=== PATIENT | female | born 1980 | race African-American/Black ===

== ENCOUNTER 2017-09-12 10:25 | Inpatient (IN) | payer OTHER ==
[2017-09-12] VITALS (9 sets, daily range): BP systolic 104–148; BP diastolic 66–105
[~2017-09-12] VITALS: Ht 165.1 cm; Wt 71.3 kg
[~2017-09-12 10:25] MED LIST: FIORICET,ESG1 TABLET PO; LEVEMIR100 UNIT/2 SC; MOTRIN800 MG PO; NORCO 10/3251 TABLET PO; NOVOLOG PE100 UNITS/ SC; PREDNISONE20 MG PO; ROXICODONE5 MG PO; VALIUM5 MG PO
[2017-09-12 11:19] LABS: BASOPHIL COUNT 0.1 K/uL (0-0.1); CARBON DIOXIDE (BICARBONATE) 5.1 MEQ/L (20-31); EOSINOPHIL (%) 0.2 % (0-5); HEMATOCRIT 45.7 % (36.0-46.0); IMMATURE GRANULOCYTE (%) 1.8 % (0.0-0.7); IMMATURE GRANULOCYTE COUNT 0.3 K/uL; LYMPHOCYTE COUNT 1.5 K/uL (1.0-2.8); MCH 29.5 PG (29.0-34.0); MCHC 33.9 G/DL (30.0-36.0); MEAN PLAT.VOLUME 11.3 uM^3 (9.5-12.4); MONOCYTE (%) 6.8 % (3-12); MONOCYTE COUNT 1.2 K/uL (0-0.8); NEUTROPHIL (%) 81.8 % (45-76); PLATELET COUNT 301 K/uL (156-360); RBC DIS.WIDTH-SD 43.4 % (39-53); RED BLOOD COUNT 5.25 M/uL (3.80-5.20); WHITE BLOOD COUNT 17.1 K/uL (4.1-10.2)
[2017-09-12 11:27] LABS: CHLORIDE 104 mEq/L (99-109); POTASSIUM 3.5 mEq/L (3.7-5.4); SODIUM 131 mEq/L (136-147)
[2017-09-12 11:29] LABS: GLUCOSE 500 mg/dL (70-99)
[2017-09-12 11:30] LABS: ANION GAP 23 MEQ/L (2-14)
[2017-09-12 11:31] LABS: TOTAL BILIRUBIN 0.2 mg/dL (0.0-1.0)
[2017-09-12 11:32] LABS: ALKALINE PHOSPHATASE 125 IU/L (3-129); GFR ESTIMATE (CALCULATED) > 59 mL/min/
[2017-09-12 11:34] LABS: UREA NITROGEN (BUN) 9 mg/dL (9-23)
[2017-09-12 11:41] LABS: QUANTITATIVE HCG < 4.0 MIU/ML
[2017-09-12 12:15] LABS: ADD MIUA? YES; BILIRUBIN NEGATIVE; BLOOD LARGE; COLOR YELLOW ((YELLOW)); GLUCOSE (STRIP) >=500; KETONES 80; LEUKOCYTES MODERATE; NITRITE NEGATIVE; PROTEIN (STRIP) 100; SPECIFIC GRAVITY 1.023 (1.000-1.030); UROBILINOGEN 0.2 MG/DL (0.2-1.0)
[2017-09-12 12:29] LABS: BACTERIA RARE /HPF; EPITHELIAL CELLS RARE /HPF; MUCUS TRACE /LPF; RED BLOOD CELLS TNTC /HPF (0-5); WHITE BLOOD CELLS TNTC /HPF (0-5)
[2017-09-12 13:02] LABS: POINT-OF-CARE METER ID UU13113702
[2017-09-12 14:06] LABS: POINT-OF-CARE METER ID UU13113702
[2017-09-12 15:08] LABS: POINT-OF-CARE METER ID UU14162636
[2017-09-12] MEDS ORDERED: NOVOLOG 10100 UNITS/ SC (15:23)
[2017-09-12] MEDS ORDERED: BASAGLAR K100 UNIT/1 SC (15:23)
[2017-09-12] MEDS ORDERED: BACTRIM,SEPT1 TABLET PO (15:24)
[2017-09-12] MEDS ORDERED: TRAMADOL HCL50 MG PO (15:25)
[2017-09-12 16:10] LABS: ANION GAP 25 MEQ/L (2-14); CHLORIDE 108 MEQ/L (99-109); POTASSIUM 3.2 MEQ/L (3.7-5.4); SAMPLE HEMOLYSIS CHECK 0; SAMPLE ICTERIC CHECK 0; SAMPLE LIPEMIA CHECK 0; SODIUM 136 MEQ/L (136-147)
[2017-09-12 16:14] LABS: GFR ESTIMATE (CALCULATED) > 59 mL/min/; GLUCOSE 363 mg/dL (70-99); UREA NITROGEN (BUN) 10 mg/dL (9-23)
[2017-09-12 16:17] LABS: POINT-OF-CARE METER ID UU14162636
[2017-09-12 16:31] LABS: Estimated Average Glucose 453 mg/dL (70-123)
[2017-09-12 16:33] LABS: METH RESISTANT S AUREUS PCR NEGATIVE (NEGATIVE)
[2017-09-12 16:51] LABS: HEMOGLOBIN A1c (GLYCOHEMOGLOB) 17.4 % HGB (Below 5.7)
[2017-09-12 16:54] LABS: PROBE CHECK PASS; SPECIMEN PROCESSING CONTROL PASS
[2017-09-12 17:18] LABS: POINT-OF-CARE METER ID UU14174217
[2017-09-12 18:08] LABS: POINT-OF-CARE METER ID UU14162636
[2017-09-12 19:16] LABS: POINT-OF-CARE METER ID UU14162636
[2017-09-12 20:00] LABS: POINT-OF-CARE METER ID UU14162636
[2017-09-12 20:15] LABS: CHLORIDE 110 MEQ/L (99-109); POTASSIUM 2.6 MEQ/L (3.7-5.4); SODIUM 136 MEQ/L (136-147)
[2017-09-12 20:54] LABS: POINT-OF-CARE METER ID UU14162636
[2017-09-12 21:10] LABS: ANION GAP 20 MEQ/L (2-14); GFR ESTIMATE (CALCULATED) > 59 mL/min/; SAMPLE HEMOLYSIS CHECK 0; SAMPLE ICTERIC CHECK 0; SAMPLE LIPEMIA CHECK 0; UREA NITROGEN (BUN) 9 mg/dL (9-23)
[2017-09-12 21:11] LABS: GLUCOSE 124 mg/dL (70-99)
[2017-09-12 21:56] LABS: POINT-OF-CARE METER ID UU14208751
[2017-09-12 22:43] LABS: POINT-OF-CARE METER ID UU14208751
[2017-09-12 23:37] LABS: POINT-OF-CARE METER ID UU14208751
[2017-09-13] VITALS (21 sets, daily range): BP systolic 96–130; BP diastolic 60–88
[2017-09-13 00:34] LABS: POINT-OF-CARE METER ID UU14208751
[2017-09-13 01:18] LABS: CHLORIDE 110 mEq/L (99-109); SODIUM 134 mEq/L (136-147)
[2017-09-13 01:21] LABS: ANION GAP 15 MEQ/L (2-14)
[2017-09-13 01:23] LABS: GFR ESTIMATE (CALCULATED) > 59 mL/min/
[2017-09-13 01:24] LABS: UREA NITROGEN (BUN) 7 mg/dL (9-23)
[2017-09-13 01:25] LABS: GLUCOSE 203 mg/dL (70-99); POTASSIUM 2.4 mEq/L (3.7-5.4)
[2017-09-13 01:30] LABS: POINT-OF-CARE METER ID UU14162636
[2017-09-13 02:30] LABS: POINT-OF-CARE METER ID UU14162636
[2017-09-13 03:19] LABS: SAMPLE HEMOLYSIS CHECK 0; SAMPLE ICTERIC CHECK 0; SAMPLE LIPEMIA CHECK 0
[2017-09-13 03:28] LABS: POINT-OF-CARE METER ID UU14162636
[2017-09-13 04:19] LABS: POINT-OF-CARE METER ID UU14162636
[2017-09-13 05:11] LABS: POINT-OF-CARE METER ID UU14162636
[2017-09-13 06:14] LABS: CHLORIDE 104 MEQ/L (99-109); GFR ESTIMATE (CALCULATED) > 59 mL/min/; GLUCOSE 153 mg/dL (70-99); POTASSIUM 2.5 MEQ/L (3.7-5.4); SAMPLE HEMOLYSIS CHECK 0; SAMPLE ICTERIC CHECK 0; SAMPLE LIPEMIA CHECK 0; SODIUM 134 MEQ/L (136-147); UREA NITROGEN (BUN) 7 mg/dL (9-23)
[2017-09-13 06:44] LABS: ANION GAP 18 MEQ/L (2-14)
[2017-09-13 07:11] LABS: POINT-OF-CARE METER ID UU14162636
[2017-09-13 09:24] LABS: POINT-OF-CARE METER ID UU14162636
[2017-09-13 09:54] LABS: ANION GAP 13 MEQ/L (2-14); CHLORIDE 104 MEQ/L (99-109); GFR ESTIMATE (CALCULATED) > 59 mL/min/; GLUCOSE 156 mg/dL (70-99); SAMPLE HEMOLYSIS CHECK 0; SAMPLE ICTERIC CHECK 0; SAMPLE LIPEMIA CHECK 0; SODIUM 135 MEQ/L (136-147); UREA NITROGEN (BUN) 6 mg/dL (9-23)
[2017-09-13 09:55] LABS: POTASSIUM 2.2 MEQ/L (3.7-5.4)
[2017-09-13 11:24] LABS: POINT-OF-CARE METER ID UU14208751
[2017-09-13 12:37] LABS: EOSINOPHIL (%) 0.3 % (0-5); HEMATOCRIT 33.1 % (36.0-46.0); IMMATURE GRANULOCYTE (%) 0.6 % (0.0-0.7); IMMATURE GRANULOCYTE COUNT 0.1 K/uL; INSTRUMENT ABS NEUTROPHIL CT 8.8 K/uL; LYMPHOCYTE COUNT 1.7 K/uL (1.0-2.8); MCHC 36.9 G/DL (30.0-36.0); MEAN PLAT.VOLUME 11.2 uM^3 (9.5-12.4); MONOCYTE (%) 9.7 % (3-12); MONOCYTE COUNT 1.1 K/uL (0-0.8); NEUTROPHIL (%) 74.6 % (45-76); NEUTROPHIL COUNT 8.8 K/uL (1.8-6.4); PLATELET COUNT 221 K/uL (156-360); RBC DIS.WIDTH-CV 13.7 % (11.8-14.6); RBC DIS.WIDTH-SD 39.7 % (39-53); WHITE BLOOD COUNT 11.8 K/uL (4.1-10.2)
[2017-09-13 12:41] LABS: MCV 81.3 FL (83-99); RED BLOOD COUNT 4.07 M/uL (3.80-5.20)
[2017-09-13 13:01] LABS: ANION GAP 9 MEQ/L (2-14); CHLORIDE 105 MEQ/L (99-109); POTASSIUM 2.5 MEQ/L (3.7-5.4); SAMPLE HEMOLYSIS CHECK 0; SAMPLE ICTERIC CHECK 0; SAMPLE LIPEMIA CHECK 0; SODIUM 136 MEQ/L (136-147)
[2017-09-13 13:07] LABS: GFR ESTIMATE (CALCULATED) > 59 mL/min/; GLUCOSE 170 mg/dL (70-99); UREA NITROGEN (BUN) 5 mg/dL (9-23)
[2017-09-13 13:37] LABS: POINT-OF-CARE METER ID UU14162636
[2017-09-13] MEDS ORDERED: LAMICTAL25 MG PO (14:10)
[2017-09-13] MEDS ORDERED: ALPRAZOLAM1 MG PO (14:10)
[2017-09-13] MEDS ORDERED: SEROQUEL100 MG PO (14:11)
[2017-09-13] MEDS ORDERED: DEPAKOTE500 MG PO (14:11)
[2017-09-13] MEDS ORDERED: SAPHRIS5 MG SL (14:11)
[2017-09-13] MEDS ORDERED: GABAPENTIN300 MG PO (14:12)
[2017-09-13] MEDS ORDERED: DEPAKOTE250 MG PO (14:12)
[2017-09-13 15:51] LABS: POINT-OF-CARE METER ID UU14208751
[2017-09-13 18:07] LABS: POINT-OF-CARE METER ID UU14314082
[2017-09-13 21:10] LABS: POINT-OF-CARE METER ID UU14314082
[2017-09-13 22:17] LABS: POINT-OF-CARE METER ID UU14314082
[2017-09-14] VITALS (13 sets, daily range): BP systolic 94–112; BP diastolic 54–72
[2017-09-14 05:36] LABS: EOSINOPHIL (%) 0.9 % (0-5); EOSINOPHIL COUNT 0.1 K/uL (0-0.3); HEMATOCRIT 34.3 % (36.0-46.0); IMMATURE GRANULOCYTE (%) 0.9 % (0.0-0.7); IMMATURE GRANULOCYTE COUNT 0.1 K/uL; INSTRUMENT ABS NEUTROPHIL CT 3.8 K/uL; LYMPHOCYTE COUNT 2.9 K/uL (1.0-2.8); MCHC 35.6 G/DL (30.0-36.0); MCV 81.5 FL (83-99); MEAN PLAT.VOLUME 11.7 uM^3 (9.5-12.4); MONOCYTE (%) 9.6 % (3-12); MONOCYTE COUNT 0.7 K/uL (0-0.8); NEUTROPHIL (%) 49.9 % (45-76); NEUTROPHIL COUNT 3.8 K/uL (1.8-6.4); PLATELET COUNT 214 K/uL (156-360); RBC DIS.WIDTH-CV 13.9 % (11.8-14.6); RBC DIS.WIDTH-SD 40.4 % (39-53); RED BLOOD COUNT 4.21 M/uL (3.80-5.20); WHITE BLOOD COUNT 7.6 K/uL (4.1-10.2)
[2017-09-14 06:20] LABS: ANION GAP 9 MEQ/L (2-14); CHLORIDE 104 MEQ/L (99-109); GFR ESTIMATE (CALCULATED) > 59 mL/min/; GLUCOSE 61 mg/dL (70-99); MAGNESIUM 2.1 mg/dl (1.3-2.7); POTASSIUM 2.3 MEQ/L (3.7-5.4); SAMPLE HEMOLYSIS CHECK 0; SAMPLE ICTERIC CHECK 0; SAMPLE LIPEMIA CHECK 0; SODIUM 142 MEQ/L (136-147); UREA NITROGEN (BUN) 5 mg/dL (9-23)
[2017-09-14 09:07] LABS: POINT-OF-CARE METER ID UU14314082
[2017-09-14 09:38] LABS: POINT-OF-CARE METER ID UU14314083
[2017-09-14 13:46] LABS: POINT-OF-CARE METER ID UU14314082
[2017-09-14 17:03] LABS: POINT-OF-CARE METER ID UU14314082
[2017-09-14 18:33] LABS: ANION GAP 9 MEQ/L (2-14); CHLORIDE 102 MEQ/L (99-109); GFR ESTIMATE (CALCULATED) > 59 mL/min/; MAGNESIUM 1.9 mg/dl (1.3-2.7); SAMPLE HEMOLYSIS CHECK 0; SAMPLE ICTERIC CHECK 0; SAMPLE LIPEMIA CHECK 0; SODIUM 141 MEQ/L (136-147); UREA NITROGEN (BUN) 4 mg/dL (9-23)
[2017-09-14 18:43] LABS: GLUCOSE 170 mg/dL (70-99)
[2017-09-14 22:44] LABS: POINT-OF-CARE METER ID UU14314083
[2017-09-15 04:13] VITALS: BP 109/72
[2017-09-15 05:54] LABS: EOSINOPHIL (%) 1.4 % (0-5); EOSINOPHIL COUNT 0.1 K/uL (0-0.3); HEMATOCRIT 33.3 % (36.0-46.0); IMMATURE GRANULOCYTE (%) 0.8 % (0.0-0.7); INSTRUMENT ABS NEUTROPHIL CT 1.5 K/uL; LYMPHOCYTE COUNT 2.7 K/uL (1.0-2.8); MCH 29.6 PG (29.0-34.0); MCHC 35.4 G/DL (30.0-36.0); MCV 83.5 FL (83-99); MEAN PLAT.VOLUME 12.1 uM^3 (9.5-12.4); MONOCYTE (%) 12.6 % (3-12); MONOCYTE COUNT 0.6 K/uL (0-0.8); NEUTROPHIL (%) 30.9 % (45-76); NEUTROPHIL COUNT 1.5 K/uL (1.8-6.4); PLATELET COUNT 200 K/uL (156-360); RBC DIS.WIDTH-CV 14.3 % (11.8-14.6); RBC DIS.WIDTH-SD 42.4 % (39-53); RED BLOOD COUNT 3.99 M/uL (3.80-5.20)
[2017-09-15 06:31] LABS: ANION GAP 9 MEQ/L (2-14); CHLORIDE 105 MEQ/L (99-109); GFR ESTIMATE (CALCULATED) > 59 mL/min/; GLUCOSE 145 mg/dL (70-99); POTASSIUM 2.9 MEQ/L (3.7-5.4); SAMPLE HEMOLYSIS CHECK 0; SAMPLE ICTERIC CHECK 0; SAMPLE LIPEMIA CHECK 0; SODIUM 146 MEQ/L (136-147); UREA NITROGEN (BUN) 4 mg/dL (9-23)
[2017-09-15 06:33] LABS: POINT-OF-CARE METER ID UU14188577
[2017-09-15 07:24] VITALS: BP 99/58
[2017-09-15 11:39] VITALS: BP 101/60
[2017-09-15 11:45] LABS: POINT-OF-CARE METER ID UU14117124
[2017-09-15 15:36] VITALS: BP 100/55
[2017-09-15 16:17] LABS: POINT-OF-CARE METER ID UU14188577
[2017-09-15 19:35] VITALS: BP 101/62
[2017-09-15 22:03] LABS: POINT-OF-CARE METER ID UU14208753
[2017-09-15 23:09] VITALS: BP 109/72
[2017-09-15 23:24] LABS: POINT-OF-CARE METER ID UU14188577
[2017-09-16 05:02] VITALS: BP 102/69
[2017-09-16 06:11] LABS: EOSINOPHIL (%) 1.2 % (0-5); EOSINOPHIL COUNT 0.1 K/uL (0-0.3); IMMATURE GRANULOCYTE (%) 0.7 % (0.0-0.7); INSTRUMENT ABS NEUTROPHIL CT 1.6 K/uL; LYMPHOCYTE COUNT 3.4 K/uL (1.0-2.8); MCH 29.2 PG (29.0-34.0); MCHC 33.5 G/DL (30.0-36.0); MEAN PLAT.VOLUME 12.4 uM^3 (9.5-12.4); MONOCYTE (%) 9.6 % (3-12); MONOCYTE COUNT 0.6 K/uL (0-0.8); NEUTROPHIL (%) 27.6 % (45-76); NEUTROPHIL COUNT 1.6 K/uL (1.8-6.4); NRBC (%) 0.4 /100 WBC (0-0); PLATELET COUNT 209 K/uL (156-360); RBC DIS.WIDTH-CV 14.6 % (11.8-14.6); RBC DIS.WIDTH-SD 45.5 % (39-53); RED BLOOD COUNT 3.91 M/uL (3.80-5.20); WHITE BLOOD COUNT 5.7 K/uL (4.1-10.2)
[2017-09-16 06:41] LABS: POINT-OF-CARE METER ID UU14117124
[2017-09-16 06:44] LABS: ALKALINE PHOSPHATASE 54 IU/L (3-129); ANION GAP 12 MEQ/L (2-14); CHLORIDE 103 MEQ/L (99-109); GFR ESTIMATE (CALCULATED) > 59 mL/min/; GLUCOSE 157 mg/dL (70-99); MAGNESIUM 1.8 mg/dl (1.3-2.7); SAMPLE HEMOLYSIS CHECK 0; SAMPLE ICTERIC CHECK 0; SAMPLE LIPEMIA CHECK 0; SODIUM 146 MEQ/L (136-147); TOTAL BILIRUBIN 0.2 MG/DL (0.0-1.0); UREA NITROGEN (BUN) 7 mg/dL (9-23)
[2017-09-16 07:27] VITALS: BP 104/64
[2017-09-16] MEDS ORDERED: POTASSIUM CHLO20 ME1 PO (09:45)
[2017-09-16 11:40] LABS: POINT-OF-CARE METER ID UU14117124
[2017-09-16 16:29] VITALS: BP 103/71
[2017-09-16 16:40] LABS: POINT-OF-CARE METER ID UU14208753
== END 2017-09-16 18:38 | disposition home or self-care (01) | DRG 638 ==
LOC: EME 10:25 → 4WEST 13:57 → ENRESERV 13:57 → EDOF 13:57 → ENRESERV 13:58 → 4WEST 14:51 → ENRESERV 09-14 21:13 → 4WEST 09-14 21:20 → ENRESERV 09-14 21:49 → 3EAST 09-14 22:51
PROVIDERS: Emergency Medicine; Hospitalist; Specialist
DX: E10.10 Type 1 diabetes mellitus with ketoacidosis without coma (principal); E86.0 Dehydration; E87.6 Hypokalemia; E83.42 Hypomagnesemia; E83.39 Other disorders of phosphorus metabolism; N39.0 Urinary tract infection, site not specified; F17.203 Nicotine dependence unspecified, with withdrawal; Z79.4 Long term (current) use of insulin; Z91.14 Patient's other noncompliance with medication regimen
CPT/HCPCS: 71010; 80048; 80048 91; 80053; 81003; 82010; 82803; 82948; 83036; 83735; 84100; 84132 91; 84702; 85025; 87641; 99281; 99285; J0610; J0696; J1644; J1815; J3475; J3480; J7030; J7040; J7050; J7070; S0028

== ENCOUNTER 2018-01-09 12:40 | Inpatient (IN) | payer OTHER ==
[~2018-01-09] VITALS: Ht 167.6 cm; Wt 68.3 kg
[2018-01-09] VITALS (14 sets, daily range): BP systolic 97–129; BP diastolic 63–105
[~2018-01-09 12:40] MED LIST changes: +ALPRAZOLAM1 MG PO; +BACTRIM,SEPT1 TABLET PO; +BASAGLAR K100 UNIT/1 SC; +DEPAKOTE250 MG PO; +DEPAKOTE500 MG PO; +GABAPENTIN300 MG PO; +LAMICTAL25 MG PO; +NOVOLOG 10100 UNITS/ SC; +POTASSIUM CHLO20 ME1 PO; +SAPHRIS5 MG SL; +SEROQUEL100 MG PO; +TRAMADOL HCL50 MG PO
[2018-01-09 13:44] LABS: BASOPHIL (%) 0.7 % (0-1); BASOPHIL COUNT 0.1 K/uL (0-0.1); EOSINOPHIL (%) 0.4 % (0-5); EOSINOPHIL COUNT 0.1 K/uL (0-0.3); HEMATOCRIT 48.3 % (36.0-46.0); HEMOGLOBIN 16.4 G/DL (11.9-15.5); IMMATURE GRANULOCYTE (%) 0.8 % (0.0-0.7); LYMPHOCYTE (%) 19.6 % (15-42); LYMPHOCYTE COUNT 2.6 K/uL (1.0-2.8); MCH 29.2 PG (29.0-34.0); MCV 85.9 FL (83-99); MONOCYTE (%) 6.4 % (3-12); MONOCYTE COUNT 0.8 K/uL (0-0.8); NEUTROPHIL (%) 72.1 % (45-76); NEUTROPHIL COUNT 9.4 K/uL (1.8-6.4); PLATELET COUNT 267 K/uL (156-360); RBC DIS.WIDTH-CV 12.5 % (11.8-14.6); RBC DIS.WIDTH-SD 38.9 % (39-53); RED BLOOD COUNT 5.62 M/uL (3.80-5.20)
[2018-01-09 13:47] LABS: CARBON DIOXIDE (BICARBONATE) 9.5 MEQ/L (20-31)
[2018-01-09 13:53] LABS: ALBUMIN 4.6 g/dL (3.2-4.8); CHLORIDE 101 mEq/L (99-109); POTASSIUM 5.5 mEq/L (3.7-5.4); SODIUM 132 mEq/L (136-147)
[2018-01-09 13:58] LABS: TOTAL BILIRUBIN 0.2 mg/dL (0.0-1.0)
[2018-01-09 13:59] LABS: ALKALINE PHOSPHATASE 89 IU/L (3-129)
[2018-01-09 14:00] LABS: CREATININE 1.6 mg/dL (0.6-1.3); GFR ESTIMATE (CALCULATED) 47 mL/min/
[2018-01-09 14:01] LABS: AST (GOT) 12 IU/L (2-34); GLUCOSE 634 mg/dL (70-99); UREA NITROGEN (BUN) 11 mg/dL (9-23)
[2018-01-09 14:02] LABS: ALT (GPT) 12 IU/L (3-49)
[2018-01-09 15:33] LABS: APPEARANCE SL.HAZY ((CLEAR)); BILIRUBIN NEGATIVE; BLOOD NEGATIVE; COLOR STRAW ((YELLOW)); GLUCOSE (STRIP) >=500; KETONES 80; LEUKOCYTES MODERATE; NITRITE NEGATIVE; PROTEIN (STRIP) 30; SPECIFIC GRAVITY 1.026 (1.000-1.030); UROBILINOGEN 0.2 MG/DL (0.2-1.0)
[2018-01-09 15:43] LABS: BACTERIA RARE /HPF; EPITHELIAL CELLS RARE /HPF; MUCUS TRACE /LPF; UCUL ADDED? YES; WHITE BLOOD CELLS 30-40 /HPF (0-5)
[2018-01-09 16:41] LABS: QUANTITATIVE HCG < 4.0 MIU/ML
[2018-01-09 21:23] LABS: CHLORIDE 111 MEQ/L (99-109); PHOSPHORUS 1.7 mg/dL (2.5-4.9); SODIUM 135 MEQ/L (136-147); UREA NITROGEN (BUN) 9 mg/dL (9-23)
[2018-01-09 21:27] LABS: CREATININE 0.7 MG/DL (0.6-1.3); GFR ESTIMATE (CALCULATED) > 59 mL/min/; GLUCOSE 172 mg/dL (70-99); POTASSIUM 3.5 MEQ/L (3.7-5.4)
[2018-01-10] VITALS (15 sets, daily range): BP systolic 105–133; BP diastolic 65–97
[2018-01-10 00:59] LABS: CHLORIDE 110 mEq/L (99-109); POTASSIUM 3.5 mEq/L (3.7-5.4)
[2018-01-10 01:00] LABS: SODIUM 136 mEq/L (136-147)
[2018-01-10 01:01] LABS: GLUCOSE 153 mg/dL (70-99)
[2018-01-10 01:05] LABS: CREATININE 0.9 mg/dL (0.6-1.3); GFR ESTIMATE (CALCULATED) > 59 mL/min/; PHOSPHORUS 1.9 mg/dL (2.5-4.9)
[2018-01-10 01:06] LABS: UREA NITROGEN (BUN) 6 mg/dL (9-23)
[2018-01-10 05:40] LABS: CHLORIDE 111 MEQ/L (99-109); CREATININE 0.7 MG/DL (0.6-1.3); GFR ESTIMATE (CALCULATED) > 59 mL/min/; GLUCOSE 119 mg/dL (70-99); PHOSPHORUS 1.8 mg/dL (2.5-4.9); POTASSIUM 3.3 MEQ/L (3.7-5.4); SODIUM 136 MEQ/L (136-147); UREA NITROGEN (BUN) 6 mg/dL (9-23)
[2018-01-10 08:50] LABS: CHLORIDE 107 MEQ/L (99-109); CREATININE 0.7 MG/DL (0.6-1.3); GFR ESTIMATE (CALCULATED) > 59 mL/min/; PHOSPHORUS 1.6 mg/dL (2.5-4.9); POTASSIUM 2.8 MEQ/L (3.7-5.4); SODIUM 133 MEQ/L (136-147); UREA NITROGEN (BUN) 5 mg/dL (9-23)
[2018-01-10 08:57] LABS: GLUCOSE 185 mg/dL (70-99)
[2018-01-10] MEDS ORDERED: LANTUS 3 M100 UNITS1 SC (11:31)
[2018-01-10] MEDS ORDERED: NOVOLOG100 UNIT/1 SC (11:32)
[2018-01-10 11:41] LABS: HEMOGLOBIN A1c (GLYCOHEMOGLOB) 16.6 % (Below 5.7)
[2018-01-10 13:42] LABS: CHLORIDE 108 MEQ/L (99-109); CREATININE 0.6 MG/DL (0.6-1.3); GFR ESTIMATE (CALCULATED) > 59 mL/min/; GLUCOSE 167 mg/dL (70-99); PHOSPHORUS 1.3 mg/dL (2.5-4.9); SODIUM 133 MEQ/L (136-147); UREA NITROGEN (BUN) 4 mg/dL (9-23)
[2018-01-10 17:19] LABS: CHLORIDE 104 MEQ/L (99-109); CREATININE 0.6 MG/DL (0.6-1.3); GFR ESTIMATE (CALCULATED) > 59 mL/min/; POTASSIUM 3.2 MEQ/L (3.7-5.4); SODIUM 134 MEQ/L (136-147); UREA NITROGEN (BUN) 4 mg/dL (9-23)
[2018-01-10 17:26] LABS: GLUCOSE 335 mg/dL (70-99)
[2018-01-11 00:03] VITALS: BP 123/98
[2018-01-11 04:05] VITALS: BP 121/73
[2018-01-11 08:25] VITALS: BP 126/80
[2018-01-11 11:58] VITALS: BP 113/71
[2018-01-11 13:16] LABS: CHLORIDE 104 MEQ/L (99-109); CREATININE 0.5 MG/DL (0.6-1.3); GFR ESTIMATE (CALCULATED) > 59 mL/min/; GLUCOSE 279 mg/dL (70-99); POTASSIUM 3.1 MEQ/L (3.7-5.4); SODIUM 139 MEQ/L (136-147); UREA NITROGEN (BUN) 2 mg/dL (9-23)
[2018-01-11] MEDS ORDERED: K-PHOS NEUTRAL250 M1 PO (14:00)
== END 2018-01-11 17:02 | disposition home or self-care (01) | DRG 638 ==
LOC: EME 12:40 → EDOF 14:15 → 4WEST 14:15 → CANRESERV 14:16 → ENRESERV 14:16 → 4WEST 16:00 → ENRESERV 01-10 17:52 → 3EAST 01-10 19:48
PROVIDERS: Emergency Medicine; Hospitalist; Specialist
DX: E11.10 Type 2 diabetes mellitus with ketoacidosis without coma (principal); N17.9 Acute kidney failure, unspecified; E83.39 Other disorders of phosphorus metabolism; E87.6 Hypokalemia; F17.200 Nicotine dependence, unspecified, uncomplicated; Z91.14 Patient's other noncompliance with medication regimen; Z91.19 Patient's noncompliance with other medical treatment and regimen; Z79.4 Long term (current) use of insulin; Z82.49 Family history of ischemic heart disease and other diseases of the circulatory system; Z83.3 Family history of diabetes mellitus
CPT/HCPCS: 80048; 80048 91; 80053; 81003; 82010; 82803; 82948; 83036; 83735; 84100; 84702; 85025; 87086; 87641; 99281; 99285; J1644; J1815; J2405; J7030; J7040; J7050

== ENCOUNTER 2018-05-30 21:34 | Emergency (ER) | payer OTHER ==
[~2018-05-30] VITALS: Ht 162.6 cm; Wt 77.1 kg
[~2018-05-30 21:34] MED LIST changes: +K-PHOS NEUTRAL250 M1 PO; +LANTUS 3 M100 UNITS1 SC; +NOVOLOG100 UNIT/1 SC
[2018-05-30 22:11] LABS: HEMATOCRIT 39.2 % (36.0-46.0); HEMOGLOBIN 13.2 G/DL (11.9-15.5); MCH 28.9 PG (29.0-34.0); MCHC 33.7 G/DL (30.0-36.0); PLATELET COUNT 264 K/uL (156-360); RBC DIS.WIDTH-CV 12.6 % (11.8-14.6); RBC DIS.WIDTH-SD 39.8 % (39-53); RED BLOOD COUNT 4.56 M/uL (3.80-5.20); WHITE BLOOD COUNT 7.8 K/uL (4.1-10.2)
[2018-05-30 22:22] LABS: CHLORIDE 95 mEq/L (99-109); SODIUM 128 mEq/L (136-147)
[2018-05-30 22:28] LABS: CREATININE 1.1 mg/dL (0.6-1.3); GFR ESTIMATE (CALCULATED) > 59 mL/min/
[2018-05-30 22:29] LABS: UREA NITROGEN (BUN) 13 mg/dL (9-23)
[2018-05-30 22:30] LABS: TROP-I INTERPRETATION NEGATIVE; TROPONIN-I < 0.01 ng/mL (0.0-0.30)
[2018-05-30 22:31] LABS: GLUCOSE 745 mg/dL (70-99)
[2018-05-30 23:14] LABS: CARBON DIOXIDE (BICARBONATE) 25.8 MEQ/L (20-31)
[2018-05-30 23:25] LABS: D-DIMER ELISA < 150.00 ng/mLDDU (<230)
[2018-05-30 23:40] LABS: APPEARANCE CLEAR ((CLEAR)); BILIRUBIN NEGATIVE; BLOOD NEGATIVE; COLOR COLORLESS ((YELLOW)); GLUCOSE (STRIP) >=500; KETONES 5; LEUKOCYTES TRACE; NITRITE NEGATIVE; PROTEIN (STRIP) NEGATIVE; SPECIFIC GRAVITY 1.028 (1.000-1.030); UROBILINOGEN 0.2 MG/DL (0.2-1.0)
[2018-05-30 23:46] LABS: QUANTITATIVE HCG 12600.1 MIU/ML
[2018-05-30 23:53] LABS: BACTERIA NONE SEEN /HPF; EPITHELIAL CELLS RARE /HPF; MUCUS NONE SEEN /LPF; RED BLOOD CELLS 0-5 /HPF (0-5); UCUL ADDED? NO; WHITE BLOOD CELLS 0-5 /HPF (0-5)
[2018-05-31] MEDS ORDERED: FLEXERIL10 MG PO (01:05)
[2018-05-31] MEDS ORDERED: IBU600 MG PO (01:05)
[2018-05-31 01:52] VITALS: BP 119/79
== END 2018-05-31 01:54 | disposition home or self-care (01) ==
LOC: EME 21:34
PROVIDERS: Emergency Medicine; Physician Assistant
DX: M54.9 Dorsalgia, unspecified (principal); M62.838 Other muscle spasm; E11.65 Type 2 diabetes mellitus with hyperglycemia; R07.9 Chest pain, unspecified; R94.31 Abnormal electrocardiogram [ECG] [EKG]; E11.10 Type 2 diabetes mellitus with ketoacidosis without coma; F17.200 Nicotine dependence, unspecified, uncomplicated; Z79.4 Long term (current) use of insulin; Z86.79 Personal history of other diseases of the circulatory system
CPT/HCPCS: 71046; 80048; 81003; 82010; 82803; 82948; 84484; 84702; 85027; 85379; 93005; 99281; 99285; J2270; J7030